=== PATIENT | female | born 1965 | race Caucasian/White ===

== ENCOUNTER 2018-02-15 23:40 | Inpatient (IN) | payer OTHER, MEDICARE ==
[~2018-02-15] VITALS: Ht 152.4 cm; Wt 44.5 kg
[2018-02-16] MEDS ORDERED: DICYCLOMINE HCL 20 MG TAB ONE (00:45)
[2018-02-16 00:47] LABS: BASOPHILS % (AUTO) 0.4 % (0.0-5.0); EOSINOPHILS % (AUTO) 0.4 % (0.0-8.0); HEMATOCRIT 39.3 % (36-48); LYMPHOCYTES % (AUTO) 10.1 % (21.0-51.0); MEAN CORPUSCULAR HEMOGLOBIN 27.9 pg (27.0-33.0); MEAN CORPUSCULAR HGB CONC 32.9 g/dL (32.0-36.0); MONOCYTES % (AUTO) 3.5 % (3.0-13.0); NEUTROPHILS % (AUTO) 85.6 % (40.0-77.0); PLATELET COUNT (AUTO) 230 K/uL (130-400); RED BLOOD CELL COUNT(AUTO) 4.63 MIL/uL (4.00-5.50); RED CELL DISTRIBUTION WIDTH 13.7 % (11.0-15.5)
[2018-02-16 01:20] LABS: CREATININE 0.5 mg/dL (0.5-1.5); POTASSIUM 3.8 mmol/L (3.5-5.1)
[2018-02-16 01:24] LABS: ALBUMIN 4.2 g/dL (3.5-5.0); BILIRUBIN,TOTAL 0.2 mg/dL (0.2-1.0); TOTAL PROTEIN, SERUM 9.1 g/dL (6.0-8.3)
[2018-02-16] MEDS ORDERED: MORPHINE SULFATE 4 MG/1ML SYG ONE ×3 (01:52→10:33)
[2018-02-16] MEDS ORDERED: ONDANSETRON HCL MDV 20ML 2 MG/ML VIAL ONE (01:53)
[2018-02-16 01:58] LABS: APPEARANCE,URINE Clear (CLEAR); BILIRUBIN,URINE Negative (NEGATIVE); COLOR,URINE Yellow (YELLOW); GLUCOSE, URINE (UA) Negative (NEGATIVE); KETONES,URINE Negative (NEGATIVE); LEUKOCYTE ESTERASE ,URINE Negative (NEGATIVE); NITRATE,URINE Negative (NEGATIVE); OCCULT BLOOD,URINE Negative (NEGATIVE); PH,URINE 7.5 (5.0-8.0); PROTEIN,URINE Negative (NEGATIVE); UROBILINOGEN,URINE 0.2 mg/dL (0.2-1.0)
[2018-02-16] MEDS ORDERED: METRONIDAZOLE 500MG/100ML BAG 100 ML ONE (06:37)
[2018-02-16] MEDS ORDERED: MEROPENEM 1 GM VIAL ONE (10:32)
[2018-02-16] MEDS ORDERED: SODIUM CHLORIDE 0.9% 1000ML 1,000 ML IV ONE (10:32)
[2018-02-16] MEDS ORDERED: DICYCLOMINE HCL 20 MG TAB PO PRN (12:30)
[2018-02-16] MEDS ORDERED: MORPHINE SULFATE 2 MG/ML 1ML SYG IM PRN (12:30)
[2018-02-16 13:30] VITALS: BP 110/73
[2018-02-16] MEDS ORDERED: ONDANSETRON HCL MDV 20ML 2 MG/ML VIAL IVP PRN (14:45)
[2018-02-16] MEDS: ZOSYN 3.375GM+NS 50ML 50 ML IV SCH (17:11)
[2018-02-16] MEDS: SODIUM CHLORIDE 0.9% 1000ML 1,000 ML IV SCH (17:12)
[2018-02-16 17:29] VITALS: BP 93/59
[2018-02-16 19:00] VITALS: BP 103/66
[2018-02-16] MEDS ORDERED: OXYC20TA41 PO (22:52)
[2018-02-16] MEDS ORDERED: CLON1TAB5 PO (22:52)
[2018-02-16] MEDS ORDERED: ESCI20TA PO (22:52)
[2018-02-16] MEDS ORDERED: DICY10CA13 PO (22:52)
[2018-02-16] MEDS ORDERED: HYDR-4068 PO (22:52)
[2018-02-16] MEDS ORDERED: ALPR2TAB7 PO (22:52)
[2018-02-16] MEDS ORDERED: MIRT45TA4 PO (22:52)
[2018-02-16] MEDS ORDERED: NYST5ORA7 PO (22:52)
[2018-02-16] MEDS ORDERED: PANT40TA25 PO (22:52)
[2018-02-16] MEDS ORDERED: LEVO5TAB29 PO (22:52)
[2018-02-16] MEDS ORDERED: DRON10CA5 PO (22:52)
[2018-02-16] MEDS ORDERED: [UNRECOGNIZED DRUG - CODE] PO (22:52)
[2018-02-16 23:00] VITALS: BP 100/70
[2018-02-16] MEDS: MORPHINE SULFATE 4 MG/1ML SYG IVP PRN (23:16)
[2018-02-17] MEDS: ZOSYN 3.375GM+NS 50ML 50 ML IV SCH ×4 (01:00→18:14)
[2018-02-17] MEDS: SODIUM CHLORIDE 0.9% 1000ML 1,000 ML IV SCH ×3 (01:21→21:49)
[2018-02-17 03:00] VITALS: BP 100/64
[2018-02-17] MEDS ORDERED: OXYCODONE HCL 5 MG TAB PO PRN (06:30)
[2018-02-17 08:07] VITALS: BP 107/63
[2018-02-17] MEDS: DICYCLOMINE HCL 20 MG TAB PO SCH ×3 (08:54→21:48)
[2018-02-17] MEDS: CITALOPRAM 20 MG TABLET PO SCH (08:55)
[2018-02-17] MEDS: CLONAZEPAM 1 MG TABLET PO SCH ×4 (08:56→21:48)
[2018-02-17] MEDS: ALPRAZOLAM 1 MG TAB PO SCH ×3 (08:57→21:47)
[2018-02-17] MEDS: PANTOPRAZOLE SODIUM 40 MG TABLET.DR PO SCH (08:58)
[2018-02-17] MEDS: XYZAL 5 MG PO SCH (09:00)
[2018-02-17] MEDS: PHENYLEPHRINE PO SCH ×4 (09:00→21:00)
[2018-02-17] MEDS: DRONABINOL 2.5 MG CAP PO SCH ×2 (09:00→21:47)
[2018-02-17] MEDS: CODEINE PO SCH ×4 (09:00→21:00)
[2018-02-17] MEDS: PROMETHAZINE PO SCH ×4 (09:00→21:00)
[2018-02-17] MEDS: METRONIDAZOLE 500MG/100ML BAG 100 ML IVPB SCH (09:04)
[2018-02-17] MEDS: MORPHINE SULFATE 4 MG/1ML SYG IVP PRN (10:17)
[2018-02-17 11:51] LABS: INR 0.97 (0.85-1.15); PARTIAL THROMBOPLASTIN TIME 23.9 SEC (26.3-35.5)
[2018-02-17 12:11] VITALS: BP 129/91
[2018-02-17 15:39] VITALS: BP 91/57
[2018-02-17] MEDS: HYDROMORPHONE 1 MG/1 ML AMP IVP PRN (16:01)
[2018-02-17 20:00] VITALS: BP 143/71
[2018-02-17] MEDS: MIRTAZAPINE 15 MG TABLET PO SCH (21:47)
[2018-02-17] MEDS: HYDROCODONE/ACETAMINOPHEN 10/325 MG TAB PO PRN (22:04)
[2018-02-18] VITALS (7 sets, daily range): BP systolic 108–124; BP diastolic 54–78
[2018-02-18] MEDS: CODEINE PO SCH ×6 (01:00→20:19)
[2018-02-18] MEDS: ZOSYN 3.375GM+NS 50ML 50 ML IV SCH ×3 (01:00→10:00)
[2018-02-18] MEDS: PHENYLEPHRINE PO SCH ×6 (01:00→20:19)
[2018-02-18] MEDS: PROMETHAZINE PO SCH ×6 (01:00→20:19)
[2018-02-18] MEDS: SODIUM CHLORIDE 0.9% 1000ML 1,000 ML IV SCH ×3 (04:24→21:38)
[2018-02-18] MEDS: PANTOPRAZOLE SODIUM 40 MG TABLET.DR PO SCH (09:00)
[2018-02-18] MEDS: ALPRAZOLAM 1 MG TAB PO SCH ×3 (09:00→21:00)
[2018-02-18] MEDS: XYZAL 5 MG PO SCH (09:00)
[2018-02-18] MEDS: DICYCLOMINE HCL 20 MG TAB PO SCH ×3 (09:00→20:17)
[2018-02-18] MEDS: CITALOPRAM 20 MG TABLET PO SCH (09:00)
[2018-02-18] MEDS: CLONAZEPAM 1 MG TABLET PO SCH ×4 (09:00→20:17)
[2018-02-18] MEDS: METRONIDAZOLE 500MG/100ML BAG 100 ML IVPB SCH (10:00)
[2018-02-18] MEDS: DRONABINOL 2.5 MG CAP PO SCH ×2 (12:11→20:18)
[2018-02-18] MEDS: HYDROMORPHONE 1 MG/1 ML AMP IVP PRN (15:30)
[2018-02-18] MEDS: MIRTAZAPINE 15 MG TABLET PO SCH (21:00)
[2018-02-19] VITALS (14 sets, daily range): BP systolic 102–140; BP diastolic 55–78
[2018-02-19] MEDS: CODEINE PO SCH ×7 (00:32→23:28)
[2018-02-19] MEDS: PROMETHAZINE PO SCH ×7 (00:32→23:28)
[2018-02-19] MEDS: PHENYLEPHRINE PO SCH ×7 (00:32→23:28)
[2018-02-19] MEDS: HYDROMORPHONE 1 MG/1 ML AMP IVP PRN (02:45)
[2018-02-19] MEDS: SODIUM CHLORIDE 0.9% 1000ML 1,000 ML IV SCH ×2 (06:02→23:26)
[2018-02-19] MEDS: DRONABINOL 2.5 MG CAP PO SCH ×2 (09:00→20:34)
[2018-02-19] MEDS: CITALOPRAM 20 MG TABLET PO SCH (09:00)
[2018-02-19] MEDS: ALPRAZOLAM 1 MG TAB PO SCH ×3 (09:00→20:36)
[2018-02-19] MEDS: PANTOPRAZOLE SODIUM 40 MG TABLET.DR PO SCH ×2 (09:00→14:00)
[2018-02-19] MEDS: DICYCLOMINE HCL 20 MG TAB PO SCH ×3 (09:00→20:35)
[2018-02-19] MEDS: CLONAZEPAM 1 MG TABLET PO SCH ×4 (09:00→20:35)
[2018-02-19] MEDS: XYZAL 5 MG PO SCH (09:00)
[2018-02-19] MEDS ORDERED: ISOVUE-300 100 ML VIAL IV ONE (11:45)
[2018-02-19] MEDS ORDERED: LIDOCAINE HCL 1% MDV 50ML VIAL ONE (11:45)
[2018-02-19] MEDS ORDERED: SODIUM BICARB 50MEQ 50ML VIAL ONE (11:45)
[2018-02-19] MEDS ORDERED: LIDOCAINE HCL 2% 20ML ONE (12:14)
[2018-02-19] MEDS ORDERED: FENTANYL CITRATE PF 50 MCG/1 ML 2ML VIAL ONE (12:35)
[2018-02-19] MEDS ORDERED: MIDAZOLAM HCL 1 MG/ML 2ML VIAL ONE (12:35)
[2018-02-19] MEDS ORDERED: PEG 3350/NA SULF,BICARB,CL/KCL 4000 ML SOLN PO SCH (14:45)
[2018-02-19] MEDS: HYDROCODONE/ACETAMINOPHEN 10/325 MG TAB PO PRN (17:51)
[2018-02-19] MEDS: MIRTAZAPINE 15 MG TABLET PO SCH (20:36)
[2018-02-20] VITALS (10 sets, daily range): BP systolic 80–136; BP diastolic 49–86
[2018-02-20] MEDS: HYDROMORPHONE 1 MG/1 ML AMP IVP PRN ×2 (00:11→11:27)
[2018-02-20] MEDS: ACETAMINOPHEN 325 MG TAB PO PRN ×2 (03:42→05:31)
[2018-02-20] MEDS: PROMETHAZINE PO SCH ×3 (05:00→13:00)
[2018-02-20] MEDS: PHENYLEPHRINE PO SCH ×3 (05:00→13:00)
[2018-02-20] MEDS: CODEINE PO SCH ×3 (05:00→13:00)
[2018-02-20 06:44] LABS: BASOPHILS % (AUTO) 0.4 % (0.0-5.0); EOSINOPHILS % (AUTO) 1.5 % (0.0-8.0); HEMATOCRIT 32.5 % (36-48); MEAN CORPUSCULAR HEMOGLOBIN 28.4 pg (27.0-33.0); MEAN CORPUSCULAR HGB CONC 33.5 g/dL (32.0-36.0); MEAN CORPUSCULAR VOLUME 84.8 fL (79-99); MONOCYTES % (AUTO) 6.9 % (3.0-13.0); NEUTROPHILS % (AUTO) 71.2 % (40.0-77.0); PLATELET COUNT (AUTO) 164 K/uL (130-400); RED BLOOD CELL COUNT(AUTO) 3.83 MIL/uL (4.00-5.50); RED CELL DISTRIBUTION WIDTH 13.7 % (11.0-15.5); WHITE BLOOD COUNT (AUTO) 6.7 K/uL (4.8-10.8)
[2018-02-20 07:12] LABS: ALBUMIN 3.3 g/dL (3.5-5.0); CREATININE 0.5 mg/dL (0.5-1.5); MAGNESIUM 1.8 mg/dL (1.80-2.40); PHOSPHORUS 3.6 mg/dL (2.5-4.9); POTASSIUM 3.2 mmol/L (3.5-5.1)
[2018-02-20 07:40] LABS: BILIRUBIN,TOTAL 0.3 mg/dL (0.2-1.0)
[2018-02-20] MEDS ORDERED: PEG 3350/NA SULF,BICARB,CL/KCL 4000 ML SOLN PO SCH (08:00)
[2018-02-20] MEDS: ALPRAZOLAM 1 MG TAB PO SCH ×2 (09:00→15:31)
[2018-02-20] MEDS: CLONAZEPAM 1 MG TABLET PO SCH (09:00)
[2018-02-20] MEDS: PANTOPRAZOLE SODIUM 40 MG TABLET.DR PO SCH (09:00)
[2018-02-20] MEDS: XYZAL 5 MG PO SCH (09:00)
[2018-02-20] MEDS: CITALOPRAM 20 MG TABLET PO SCH (09:00)
[2018-02-20] MEDS: DRONABINOL 2.5 MG CAP PO SCH (09:00)
[2018-02-20] MEDS: DICYCLOMINE HCL 20 MG TAB PO SCH ×2 (09:00→15:31)
[2018-02-20] MEDS ORDERED: PROPOFOL 10 MG/ML 20ML VIAL IV ONE (12:40)
== END 2018-02-20 16:14 | disposition left against medical advice (07) | DRG 394 ==
LOC: EDH 23:40 → OBSVTOIN 02-16 06:29 → EDHIP 02-16 06:29 → 3CH 02-16 13:27
PROVIDERS: ADMIT Internal Medicine; ATTEND Internal Medicine
PROC: 0D2DXUZ Change Feeding Device in Lower Intestinal Tract, External Approach (ICD-10-PCS; 2018-02-19)
PROC: 0DB58ZX Excision of Esophagus, Via Natural or Artificial Opening Endoscopic, Diagnostic (ICD-10-PCS; principal; 2018-02-20)
PROC: 0DB68ZX Excision of Stomach, Via Natural or Artificial Opening Endoscopic, Diagnostic (ICD-10-PCS; 2018-02-20)
PROC: 0DB78ZX Excision of Stomach, Pylorus, Via Natural or Artificial Opening Endoscopic, Diagnostic (ICD-10-PCS; 2018-02-20)
PROC: 0DJD8ZZ Inspection of Lower Intestinal Tract, Via Natural or Artificial Opening Endoscopic (ICD-10-PCS; 2018-02-20)
DX: K94.13 Enterostomy malfunction (principal); R64 Cachexia; E46 Unspecified protein-calorie malnutrition; K31.84 Gastroparesis; M34.1 CR(E)ST syndrome; M35.00 Sjogren syndrome, unspecified; R13.10 Dysphagia, unspecified; R10.9 Unspecified abdominal pain; K52.9 Noninfective gastroenteritis and colitis, unspecified; K59.00 Constipation, unspecified; M79.7 Fibromyalgia; E86.0 Dehydration; F41.1 Generalized anxiety disorder; N20.0 Calculus of kidney; Z79.891 Long term (current) use of opiate analgesic; Z88.8 Allergy status to other drugs, medicaments and biological substances; Z90.710 Acquired absence of both cervix and uterus; Z91.018 Allergy to other foods
CPT/HCPCS: 36415; 49452; 71045; 74176; 80053; 81003; 82150; 82306; 82330; 83690; 83735; 83970; 84100; 85025; 85610; 85651; 85730; 86141; 87507; 88305; 88312; 93005; 99152; 99153; C1769; J1170; J2185; J2250; J2270; J2543; J2704; J3010; J3490; J7030; Q0167; Q9967

== ENCOUNTER 2019-05-19 04:15 | Observation (INO) | payer OTHER, MEDICARE ==
[2019-05-19] VITALS (18 sets, daily range): BP systolic 92–128; BP diastolic 58–89
[~2019-05-19] VITALS: Ht 152.4 cm; Wt 40.8 kg
[~2019-05-19 04:15] MED LIST: ALPR2TAB7 PO; CLON1TAB12 PO; DICY10CA13 PO; DRON10CA5 PO; ESCI20TA PO; HYDR-4068 PO; LEVO5TAB29 PO; MIRT45TA83 PO; NYST5ORA7 PO; OXYC20TA41 PO; PANT40TA25 PO; [UNRECOGNIZED DRUG - CODE] PO
[2019-05-19] MEDS ORDERED: HALOPERIDOL LACTATE 5 MG/ML VIAL ONE (04:36)
[2019-05-19] MEDS ORDERED: ONDANSETRON HCL 4 MG/2 ML VIAL ONE (04:36)
[2019-05-19] MEDS ORDERED: SODIUM CHLORIDE 0.9% 1000ML 1,000 ML IV ONE (04:37)
[2019-05-19 05:15] LABS: BASOPHILS % (AUTO) 0.2 % (0.0-5.0); EOSINOPHILS % (AUTO) 0.5 % (0.0-8.0); HEMATOCRIT 45.3 % (36-48); LYMPHOCYTES % (AUTO) 3.8 % (21.0-51.0); MEAN CORPUSCULAR HEMOGLOBIN 28.5 pg (27.0-33.0); MEAN CORPUSCULAR HGB CONC 32.5 g/dL (32.0-36.0); MEAN CORPUSCULAR VOLUME 87.8 fL (79-99); MONOCYTES % (AUTO) 2.1 % (3.0-13.0); NEUTROPHILS % (AUTO) 93.4 % (40.0-77.0); PLATELET COUNT (AUTO) 250 K/uL (130-400); RED BLOOD CELL COUNT(AUTO) 5.16 MIL/uL (4.00-5.50); RED CELL DISTRIBUTION WIDTH 13.7 % (11.0-15.5); WHITE BLOOD COUNT (AUTO) 18.4 K/uL (4.8-10.8)
[2019-05-19 05:25] LABS: CREATININE 0.6 mg/dL (0.5-1.5); POTASSIUM 3.3 mmol/L (3.5-5.1)
[2019-05-19 05:31] LABS: ALBUMIN 4.2 g/dL (3.5-5.0); BILIRUBIN,DIRECT 0.1 mg/dL (0.0-0.3); BILIRUBIN,TOTAL 0.4 mg/dL (0.2-1.0); TOTAL PROTEIN, SERUM 8.9 g/dL (6.0-8.3)
[2019-05-19] MEDS ORDERED: CEFTRIAXONE SODIUM 2 GM VIAL ONE (06:35)
[2019-05-19] MEDS ORDERED: SODIUM CHLORIDE 0.9% 50 ML IV ONE (06:35)
[2019-05-19] MEDS ORDERED: METRONIDAZOLE 500MG/100ML BAG 100 ML ONE (08:45)
[2019-05-19] MEDS ORDERED: HYDROMORPHONE 1 MG/1 ML AMP ONE (08:55)
[2019-05-19] MEDS ORDERED: HYDROMORPHONE 1 MG/1 ML AMP IVP PRN (09:15)
[2019-05-19] MEDS ORDERED: ONDANSETRON HCL 4 MG/2 ML VIAL IVP PRN (09:15)
--- NOTE | 2019-05-19 09:25 | NUR ---
REPORT RECEIVED FROM JENNIFER ESPINAL (ED). PATIENT WITH C/O ABDOMINAL PAIN, VOMITING AND DIARRHEA IN ER. PATIENT ADMITTED UNDER DR. CRYSTAL'S SERVICES FOR COLITIS AND GASTROPARESIS. DR. PAUL CONSULTED, PENDING CALL BACK.
[2019-05-19] MEDS ORDERED: LEVOFLOXACIN 500 MG/D5W 100 ML 100 ML ONE (09:29)
--- NOTE | 2019-05-19 10:00 | NUR ---
PT IN THE ROOM DENIES SOB OR CHEST PAIN AWARE OF STOOLS
[2019-05-19] MEDS: D5LR-20 MEQ KCL 1000 ML 1,000 ML IV SCH (10:52)
[2019-05-19] MEDS ORDERED: LIDOCAINE HCL-MPF 2% 5ML VIAL ONE (12:20)
[2019-05-19] MEDS ORDERED: PROPOFOL 10 MG/ML 20ML VIAL IV ONE (12:20)
[2019-05-19] MEDS ORDERED: LACTULOSE 20 GM/30 ML UDCUP PO SCH ×2 (14:30→14:45)
[2019-05-19] MEDS ORDERED: MAGNESIUM CITRATE 296 ML SOLUTION PO SCH (15:00)
[2019-05-19] MEDS ORDERED: PEG 3350/NA SULF,BICARB,CL/KCL 4000 ML SOLN PO SCH (16:00)
[2019-05-19] MEDS: PANTOPRAZOLE SODIUM 40 MG TABLET.DR PO SCH (16:33)
--- NOTE | 2019-05-19 18:43 | NUR ---
CALLED DR. PAUL REGARDING PATIENT REFUSING COLONOSCOPY SCHEDULED FOR TOMORROW. PER DR. PAUL OKAY TO CANCEL PROCEDURE. PATIENT SIGNED REFUSAL NOTICE.
[2019-05-19] MEDS: FAMOTIDINE/PF 20 MG/2 ML VIAL IV SCH (20:45)
[2019-05-19] MEDS: METRONIDAZOLE 500MG/100ML BAG 100 ML IVPB SCH (21:19)
[2019-05-20] VITALS: BP 106/68
[2019-05-20] MEDS: D5LR-20 MEQ KCL 1000 ML 1,000 ML IV SCH (02:01)
[2019-05-20 04:00] VITALS: BP 109/71
[2019-05-20 04:41] LABS: MEAN CORPUSCULAR HEMOGLOBIN 29.1 pg (27.0-33.0); MEAN CORPUSCULAR HGB CONC 33.5 g/dL (32.0-36.0); MEAN CORPUSCULAR VOLUME 86.9 fL (79-99); PLATELET COUNT (AUTO) 166 K/uL (130-400); RED BLOOD CELL COUNT(AUTO) 3.92 MIL/uL (4.00-5.50); RED CELL DISTRIBUTION WIDTH 14.2 % (11.0-15.5); WHITE BLOOD COUNT (AUTO) 12.1 K/uL (4.8-10.8)
[2019-05-20] MEDS: METRONIDAZOLE 500MG/100ML BAG 100 ML IVPB SCH (05:38)
[2019-05-20 08:00] VITALS: BP 112/73
[2019-05-20] MEDS ORDERED: LEVOFLOXACIN 500 MG TABLET PO SCH (09:00)
[2019-05-20] MEDS: FAMOTIDINE/PF 20 MG/2 ML VIAL IV SCH (09:00)
[2019-05-20] MEDS: PANTOPRAZOLE SODIUM 40 MG TABLET.DR PO SCH (10:02)
--- NOTE | 2019-05-20 10:14 | NUR ---
PATIENT WOULD LIKE TO CANCEL HER REPLACEMENT OF J TUBE PROCEDURE AND SIGN AMA FROM HOSPITAL. 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 PRIMARY NURSE HAS INFORMED PRIMARY PHYSICIAN (DR. CRYSTAL). PATIENT HAS SIGNED BOTH AMA AND REFUSAL OF PROCEDURE PAPERS. PATIENT WAITING FOR PERSONAL TRANSPORTATION HOME.
--- NOTE | 2019-05-20 11:38 | NUR ---
IV REMOVED. PROVIDED MEDICATION AND POTENTIAL FOLLOW UP APPOINTMENT EDUCATION. PATIENTS FAMILY MEMBER HAS ARRIVED. PATIENT READY TO GO HOME.
== END 2019-05-20 11:37 | disposition left against medical advice (07) ==
LOC: EDH 04:15 → EDHIP 08:30 → 4AH 09:52
PROVIDERS: ADMIT Internal Medicine Critical Care Medicine; ATTEND Internal Medicine Critical Care Medicine
DX: K52.9 Noninfective gastroenteritis and colitis, unspecified (principal); E43 Unspecified severe protein-calorie malnutrition; E86.0 Dehydration; K21.0 Gastro-esophageal reflux disease with esophagitis; K22.4 Dyskinesia of esophagus; I73.00 Raynaud's syndrome without gangrene; R11.2 Nausea with vomiting, unspecified; K27.9 Peptic ulcer, site unspecified, unspecified as acute or chronic, without hemorrhage or perforation; K29.70 Gastritis, unspecified, without bleeding; K22.70 Barrett's esophagus without dysplasia; K29.80 Duodenitis without bleeding; K31.84 Gastroparesis; K63.5 Polyp of colon; M24.549 Contracture, unspecified hand; M34.1 CR(E)ST syndrome; M35.00 Sjogren syndrome, unspecified; R13.12 Dysphagia, oropharyngeal phase; Z90.710 Acquired absence of both cervix and uterus; Z93.1 Gastrostomy status; Z88.8 Allergy status to other drugs, medicaments and biological substances; Z79.899 Other long term (current) drug therapy
CPT/HCPCS: 36415 ×2; 43239; 74176; 80048; 80076; 83605 ×2; 83690; 85025; 85027; 87040 ×2; 88305; 96365; 96366 ×2; 96367; 96375; 99284; G0378 ×25; J0696; J1170; J1630; J1956; J2405; J2704; J3480 ×3; J3490 ×5; J7030; 96361

== ENCOUNTER → 2024-11-25 | Outpatient (CLI) | payer OTHER, MEDICARE ==
[~2024-11-25] MED LIST changes: -DICY10CA13 PO; +DICY10CA2 PO; -DRON10CA5 PO; +DRON10CA8 PO; +NYST100033 PO; -NYST5ORA7 PO; -PANT40TA25 PO; +PANT40TA54 PO
--- NOTE | 2024-11-26 10:47 | HMCIMG ---
HANDS BILAT, 2VWS EACH REASON: BILATERAL HAND PAIN COMPARISON: None TECHNIQUE: 2 views were obtained of each hand. These images are somewhat limited as there is marked flexion of the phalanges at the MCP joints. 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 There is marked narrowing and joint space destruction of the proximal interphalangeal joint fifth finger there are areas calcification typical of scleroderma. There are no visible fractures. Left side shows similar findings, markedly flexed fingers, arthritic changes in the PIP joints, no evidence of fracture. IMPRESSION: 1. 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 2. Marked flexion of the second through fifth the fingers at the proximal interphalangeal joint causing limited evaluation. 3. No evidence of fracture or other acute finding. 4. Metacarpals appear normal as do the distal radius and ulna and the carpal bones.
--- NOTE | 2024-11-26 10:47 | HMCIMG ---
WRIST 2VWS RT REASON: BILATERAL WRIST PAIN TECHNIQUE: 2 views were obtained. FINDINGS: There is a soft tissue erosion at the base of the thumb, at the proximal first metacarpal, with some associated soft tissue calcifications. The navicular appears intact. There are no visible fractures. IMPRESSION: No acute findings.
--- NOTE | 2024-11-26 10:48 | HMCIMG ---
WRIST 2VWS LT REASON: BILATERAL WRIST PAIN COMPARISON: None TECHNIQUE: 2 views were obtained of the wrist with attention to the navicular. FINDINGS: There is normal-appearing carpal bones. There are no fractures. Interspace level appear preserved. Soft tissues appear unremarkable. IMPRESSION: 1. Normal findings left wrist.
--- NOTE | 2024-11-26 10:49 | HMCIMG ---
-ELBOW 2VWS LT REASON: ELBOW JOINT PAIN COMPARISON: None TECHNIQUE: 2 views were obtained FINDINGS: There is some soft tissue calcification superficial to the posterior aspect of the proximal ulna, nonspecific but this can be seen with scleroderma. Bones appear normal. Joint spaces are preserved. Soft tissues are otherwise unremarkable. IMPRESSION: 1. Soft tissue calcification, exam is otherwise unremarkable.
--- NOTE | 2024-11-26 11:12 | HMCIMG ---
ELBOW 2VWS RT REASON: ELBOW JOINT PAIN TECHNIQUE: 2 views were obtained. FINDINGS: There is no evidence of fracture or dislocation. Joint spaces appear preserved. There are posterior soft tissue calcifications are nonspecific but consistent with scleroderma. There is no evidence of a radiopaque foreign body. IMPRESSION: No acute findings.
--- NOTE | 2024-11-26 11:13 | HMCIMG ---
KNEE 2VW BILATERAL REASON: KNEE PAIN, BILATERAL COMPARISON: None TECHNIQUE: 2 views were obtained of the right and of the left knee, 4 views total. FINDINGS: Both knees show normal findings. Bones appear unremarkable. Joint spaces are preserved. There are no soft tissue calcifications. There is no evidence of joint effusion. IMPRESSION: 1. Normal 2 view exam of the right and of the left knee.
--- NOTE | 2024-11-26 11:13 | HMCIMG ---
FOOT LIMITED 2VWS RT REASON: RIGHT FOOT PAIN TECHNIQUE: 2 views were obtained. FINDINGS: There is no evidence of fracture or dislocation. Joint spaces are preserved. The soft tissues appear unremarkable. There is no evidence of a radiopaque foreign body. IMPRESSION: No acute findings.
--- NOTE | 2024-11-26 11:14 | HMCIMG ---
FOOT LIMITED 2VWS LT REASON: LEF FOOT PAIN TECHNIQUE: 2 views were obtained. FINDINGS: There is no evidence of fracture or dislocation. Joint spaces are preserved.. The soft tissues appear unremarkable. There is no evidence of a radiopaque foreign body. IMPRESSION: No acute findings.
== END | disposition home or self-care (01) ==
LOC: RAH 16:56
PROVIDERS: ATTEND Internal Medicine
DX: M47.816 Spondylosis without myelopathy or radiculopathy, lumbar region (principal); M48.061 Spinal stenosis, lumbar region without neurogenic claudication; N28.1 Cyst of kidney, acquired; M25.561 Pain in right knee; M25.531 Pain in right wrist; M25.529 Pain in unspecified elbow; M34.1 CR(E)ST syndrome; M79.641 Pain in right hand; M79.671 Pain in right foot; M79.672 Pain in left foot; D36.7 Benign neoplasm of other specified sites; M19.049 Primary osteoarthritis, unspecified hand; M25.841 Other specified joint disorders, right hand
CPT/HCPCS: 73070; 73100; 73565; 73620; 73560